=== PATIENT | female | born 1970 | race Caucasian/White ===

== ENCOUNTER 2018-01-01 16:58 | Emergency (ER) | payer BC, OTHER ==
[~2018-01-01] VITALS: Ht 172.7 cm; Wt 99.8 kg
--- NOTE | 2018-01-01 17:53 | RAD ---
Examination: CT of the abdomen pelvis without contrast HISTORY: History of left-sided flank pain COMPARISON:03/10/2015 TECHNIQUE: Axial CT images of the abdomen pelvis were performed without contrast. Coronal and sagittal reformats are performed Exposure: One or more of the following individualized dose reduction techniques were utilized for this examination: 1. Automated exposure control 2. Adjustment of the mA and/or kV according to patient size 3. Use of iterative reconstruction technique Findings: The visualized bibasilar lungs are clear. No evidence of free air identified in the abdomen. The evaluation of the solid organs is limited due to lack of IV contrast. The evaluation of the bowel is limited due to lack of oral contrast. The visualized noncontrasted liver, spleen, adrenals grossly appears unremarkable. Surgical changes identified in the stomach Cholecystectomy clips identified. There is minimal fat stranding identified about the pancreas. The small bowel is nondilated. The appendix is normal. Feces and gas noted in the colon. Urinary bladder is mildly distended. Punctate 2 mm intrarenal collecting system calculus identified in the left kidney. No evidence of hydronephrosis. There is a tiny 1 mm calcification identified in the left pelvis best seen on series 2 image #132 could be distal ureteral calculus or pelvic phleboliths. The course of the left ureter in the pelvis cannot be clearly identified however there is no evidence of hydronephrosis. The caliber of the aorta grossly appears unremarkable. No evidence of lytic bony destructive lesion. IMPRESSION: 1. Mild fat stranding identified about the pancreas probably pancreatitis. Correlate with lab values. 2. Punctate 2 mm intrarenal collecting system calculus in the left kidney. No evidence of hydronephrosis.There is a tiny 1 mm calcification identified in the left pelvis best seen on series 2 image #132 could be distal ureteral calculus or pelvic phlebolith. The course of the left ureter in the pelvis cannot be clearly identified however there is no evidence of hydronephrosis. Electronically signed by: Rodrigo Davalos MD (01/01/2018 5:50 PM) [facility]
--- NOTE | 2018-01-01 18:14 | ED.ADGEN ---
Past History Past Medical History: Kidney Stones, Other Past Surgical History: Other Alcohol Use: None Drug Use: None Adult General Chief Complaint Chief Complaint " .. I hurting here in my Lt flank...".." Dr. Hatch office sent me over here...".." I know I got a UTI..." HPI HPI Patient is a 47 year old female who presents with above hx and Lt. flank pain and hx dysuria. Pt. localizes pain in left flank. Patient does have associated nausea. There is radiation of pain from left flank down to pelvic area. No history of pelvic discharge. No history immunosuppression. No history of travel. No history of ill contacts. Patient does have prescription for Bactrim already. Patient seen earlier [facility]. No history of bad food. Normal stools. Review of Systems Review of Systems Constitutional: Denies fever or chills [] Eyes: Denies change in visual acuity, redness, or eye pain [] HENT: Denies nasal congestion or sore throat [] Respiratory: Denies cough or shortness of breath [] Cardiovascular: No additional information not addressed in HPI [] GI: Denies abdominal pain, nausea, vomiting, bloody stools or diarrhea [] : Denies dysuria or hematuria [] Musculoskeletal: Denies back pain or joint pain [] Integument: Denies rash or skin lesions [] Neurologic: Denies headache, focal weakness or sensory changes [] Endocrine: Denies polyuria or polydipsia [] All other systems were reviewed and found to be within normal limits, except as documented in this note. Family History Family History Noncontributory Current Medications Current Medications Current Medications Medications (Trade) Dose Ordered Sig/Orestes Start Time Stop Time Status Last Admin Dose Admin Ceftriaxone Sodium 1 gm/ Sodium Chloride 50 ml @ 100 mls/hr 1X ONCE 01/01/18 19:30 01/01/18 19:35 DC Ceftriaxone Sodium (Rocephin) 1 gm Q24H 01/01/18 19:45 01/01/18 20:24 DC 01/01/18 19:54 1 GM Famotidine (Pepcid Vial) 20 mg 1X ONCE 01/01/18 18:30 01/01/18 18:32 DC 01/01/18 18:56 20 MG Fentanyl Citrate (Fentanyl 2ml Vial) 75 mcg 1X ONCE 01/01/18 18:30 2/16/18 18:32 DC 01/01/18 18:50 75 MCG Ketorolac Tromethamine (Toradol) 30 mg 1X ONCE 01/01/18 19:30 01/01/18 19:34 DC 01/01/18 19:50 30 MG Ondansetron HCl (Zofran) 8 mg 1X ONCE 01/01/18 19:30 01/01/18 19:34 DC 01/01/18 19:48 8 MG Sodium Chloride 1,000 ml @ 1,000 mls/hr Q1H 01/01/18 18:30 01/01/18 19:29 DC 01/01/18 18:51 1,000 MLS/HR Tamsulosin HCl (Flomax) 0.4 mg 1X ONCE 01/01/18 19:30 01/01/18 19:34 DC 01/01/18 19:46 0.4 MG Allergies Allergies Allergies Coded Allergies Type Severity Reaction Last Updated Verified Latex, Natural Rubber Allergy Intermediate Nausea 03/10/15 Yes morphine Allergy Intermediate Nausea and Vomiting 03/10/15 Yes Physical Exam Physical Exam Constitutional: in acute distress, non-toxic appearance. [] HENT: Normocephalic, atraumatic, bilateral external ears normal, oropharynx moist, no oral exudates, nose normal. [] Eyes: PERRLA, EOMI, conjunctiva normal, no discharge. [] Neck: Normal range of motion, no tenderness, supple, no stridor. [] Cardiovascular:Heart rate regular rhythm, no murmur [] Lungs & Thorax: Bilateral breath sounds equal at apexes on auscultation [] Abdomen: Bowel sounds decreased, soft, left flank tenderness, no masses, no pulsatile masses. Obese Skin: Warm, dry, no erythema, no rash. [] Back: No tenderness, no CVA tenderness. [] Extremities: No tenderness, no cyanosis, no clubbing, ROM intact, no edema. No psoas or obturator sign Neurologic: Alert and oriented X 3, normal motor function, normal sensory function, no focal deficits noted. [] Psychologic: Affect anxious, judgement normal, mood normal. [] Current Patient Data Vital Signs Vital Signs Date Time Temp Pulse Resp B/P (MAP) Pulse Ox O2 Delivery O2 Flow Rate FiO2 01/01/18 20:15 56 16 101/59 (73) 100 Room Air 01/01/18 17:10 98.3 Lab Results Laboratory Tests Test 01/01/18 18:20 01/01/18 18:30 Urine Collection Type Unknown Urine Color Yellow Urine Clarity Clear Urine pH 5.5 Urine Specific Bayard 1.020 Urine Protein Neg (NEG-TRACE) Urine Glucose (UA) Neg mg/dL (NEG) Urine Ketones (Stick) Neg mg/dL (NEG) Urine Blood Neg (NEG) Urine Nitrite Neg (NEG) Urine Bilirubin Neg (NEG) Urine Urobilinogen Dipstick 1 mg/dL (0.2 mg/dL) Urine Leukocyte Esterase Trace (NEG) Urine RBC 3-5 /HPF (0-2) Urine WBC 5-10 /HPF (0-4) Urine Squamous Epithelial Cells Few /LPF Urine Bacteria 0 /HPF (0-FEW) Urine Mucus Slight /LPF Urine Opiates Screen Neg (NEG) Urine Methadone Screen Neg (NEG) Urine Barbiturates Neg (NEG) Urine Phencyclidine Screen Neg (NEG) Urine Amphetamine/Methamphetamine Neg (NEG) Urine Benzodiazepines Screen Neg (NEG) Urine Cocaine Screen Neg (NEG) Urine Cannabinoids Screen Neg (NEG) Urine Ethyl Alcohol Neg (NEG) White Blood Count 5.8 x10^3/uL (4.0-11.0) Red Blood Count 4.56 x10^6/uL (3.50-5.40) Hemoglobin 13.3 g/dL (12.0-15.5) Hematocrit 39.3 % (36.0-47.0) Mean Corpuscular Volume 86 fL (79-100) Mean Corpuscular Hemoglobin 29 pg (25-35) Mean Corpuscular Hemoglobin Concent 34 g/dL (31-37) Red Cell Distribution Width 13.7 % (11.5-14.5) Platelet Count 252 x10^3/uL (140-400) Neutrophils (%) (Auto) 56 % (31-73) Lymphocytes (%) (Auto) 32 % (24-48) Monocytes (%) (Auto) 9 % (0-9) Eosinophils (%) (Auto) 2 % (0-3) Basophils (%) (Auto) 1 % (0-3) Neutrophils # (Auto) 3.3 x10^3uL (1.8-7.7) Lymphocytes # (Auto) 1.8 x10^3/uL (1.0-4.8) Monocytes # (Auto) 0.5 x10^3/uL (0.0-1.1) Eosinophils # (Auto) 0.1 x10^3/uL (0.0-0.7) Basophils # (Auto) 0.1 x10^3/uL (0.0-0.2) Prothrombin Time 10.4 SEC (9.4-11.4) Prothrombin Time INR 1.0 (0.9-1.1) PTT 25 SEC (23-33) Sodium Level 138 mmol/L (136-145) Potassium Level 4.1 mmol/L (3.5-5.1) Chloride Level 103 mmol/L (98-107) Carbon Dioxide Level 30 mmol/L (21-32) Anion Gap 5 (6-14) L Blood Urea Nitrogen 14 mg/dL (7-20) Creatinine 0.7 mg/dL (0.6-1.0) Estimated GFR (Cockcroft-Gault) 89.7 Glucose Level 91 mg/dL (70-99) Calcium Level 9.2 mg/dL (8.5-10.1) Total Bilirubin 0.4 mg/dL (0.2-1.0) Direct Bilirubin 0.1 mg/dL (0.0-0.2) Aspartate Amino Transferase (AST) 30 U/L (15-37) Alanine Aminotransferase (ALT) 33 U/L (14-59) Alkaline Phosphatase 117 U/L (46-116) H Troponin I Quantitative < 0.017 ng/mL (0-0.055) Total Protein 8.5 g/dL (6.4-8.2) H Albumin 4.2 g/dL (3.4-5.0) Amylase Level 58 U/L (25-115) Lipase 106 U/L (73-393) EKG EKG [] Radiology/Procedures Radiology/Procedures CT shows[] distal 1 mm stone but no hydronephrosis. No other surgical pathology. There is questionable findings of pancreatitis. See formal report when available Course & Med Decision Making Course & Med Decision Making Pertinent Labs and Imaging studies reviewed. (See chart for details). Patient to push fluids and vitamin C drinks. Patient take Bactrim DS twice a day. Patient to take Flomax daily at night. Patient take Zofran for nausea and vomiting up to 4 times a day. Patient may take Vicoprofen up 4 times a day for pain. Must follow-up. [] Final Impression Final Impression 1. Renal Colic 2. Renal Stone 3. UTI[] Problems: Dragon Disclaimer Dragon Disclaimer This electronic medical record was generated, in whole or in part, using a voice recognition dictation system. DANG CHANG MD Jan 01, 2018 18:14
[2018-01-01] MEDS ORDERED: IV NORMAL SALINE 1,000ML 1,000 ML IV SCH (18:30)
[2018-01-01] MEDS ORDERED: FAMOTIDINE 20 MG/2 ML VIAL IVP ONE (18:30)
[2018-01-01] MEDS ORDERED: ONDANSETRON PF 4 MG/2 ML VIAL. IV ONE ×2 (18:30→19:30)
[2018-01-01 18:49] LABS: BASO # 0.1 x10^3/uL (0.0-0.2); BASO % 1 % (0-3); EOS # 0.1 x10^3/uL (0.0-0.7); EOS % 2 % (0-3); HEMATOCRIT 39.3 % (36.0-47.0); HEMOGLOBIN 13.3 g/dL (12.0-15.5); LYMPH # 1.8 x10^3/uL (1.0-4.8); LYMPH % 32 % (24-48); MEAN CORPUSCULAR HEMOGLOBIN 29 pg (25-35); MEAN CORPUSCULAR HGB CONC 34 g/dL (31-37); MEAN CORPUSCULAR VOLUME 86 fL (79-100); MONO # 0.5 x10^3/uL (0.0-1.1); MONO % 9 % (0-9); NEUT # 3.3 x10^3uL (1.8-7.7); NEUT % 56 % (31-73); PLATELET COUNT 252 x10^3/uL (140-400); RED BLOOD COUNT 4.56 x10^6/uL (3.50-5.40); RED CELL DISTRIBUTION WIDTH 13.7 % (11.5-14.5); WHITE BLOOD COUNT 5.8 x10^3/uL (4.0-11.0)
[2018-01-01 18:58] LABS: ALBUMIN 4.2 g/dL (3.4-5.0); CALCIUM 9.2 mg/dL (8.5-10.1); CREATININE 0.7 mg/dL (0.6-1.0); DIRECT BILIRUBIN 0.1 mg/dL (0.0-0.2); GFR 89.7; POTASSIUM 4.1 mmol/L (3.5-5.1); TOTAL BILIRUBIN 0.4 mg/dL (0.2-1.0); TOTAL PROTEIN 8.5 g/dL (6.4-8.2)
[2018-01-01 19:00] LABS: BILIRUBIN,URINE NEG (NEG); CLARITY,URINE CLEAR; COLOR,URINE YELLOW; GLUCOSE,URINE NEG (NEG); UROBILINOGEN,URINE 1 mg/dL (0.2 mg/dL)
[2018-01-01 19:02] LABS: NITRITE,URINE NEG (NEG)
[2018-01-01 19:03] LABS: BACTERIA,URINE 0 /HPF (0-FEW); SQUAMOUS EPITHELIAL CELL,UR FEW /LPF
[2018-01-01 19:17] LABS: BARBITURATES NEG (NEG); BENZODIAZEPINES NEG (NEG); CANNABINOIDS NEG (NEG); COCAINE NEG (NEG); METHADONE NEG (NEG); OPIATES NEG (NEG); PHENCYCLIDINE NEG (NEG)
[2018-01-01 19:18] LABS: AMPHETAMINE/METHAMPHETAMINE NEG (NEG)
[2018-01-01] MEDS ORDERED: KETOROLAC 30 MG/ML VIAL. IV ONE (19:30)
[2018-01-01] MEDS ORDERED: TAMSULOSIN 0.4 MG CAP.ER.24H. PO ONE (19:30)
[2018-01-01] MEDS ORDERED: HYDR-79 PO (19:38)
[2018-01-01] MEDS ORDERED: ONDA8TAB12 PO (19:38)
[2018-01-01] MEDS ORDERED: TAMS0.4C97 PO (19:38)
[2018-01-01] MEDS ORDERED: cefTRIAXone IV Push 1 GM VIAL. IVP SCH (19:45)
[2018-01-01 20:15] VITALS: BP 101/59
--- NOTE | 2018-01-02 08:51 | RAD ---
EXAM: Two view abdomen with one view chest HISTORY: Left flank pain, renal stones. COMPARISON: None. FINDINGS: A frontal view of the chest and supine/upright views of the abdomen are obtained. There are no confluent infiltrates. There is no pneumothorax or pleural effusion. The heart is not enlarged. There are postoperative changes within the upper abdomen. Tiny calculi seen on CT are not appreciable by radiographs. There is no pneumoperitoneum. There are no distended small bowel loops or significant air-fluid levels. There is gas distally. IMPRESSION: 1. No confluent infiltrates. 2. The tiny calculi on CT are not appreciable by radiographs. 3. No evidence of obstruction.
== END 2018-01-01 20:18 | disposition home or self-care (01) ==
LOC: ER 16:58
DX: N20.0 Calculus of kidney (principal); N39.0 Urinary tract infection, site not specified; Z87.442 Personal history of urinary calculi; Z88.5 Allergy status to narcotic agent; Z91.040 Latex allergy status
CPT/HCPCS: 36415; 74022; 74176; 80048; 80076; 80307; 81001; 81025; 82150; 83690; 84484; 85025; 85610; 85730; 87086; 96361; 96372; 96374; 96375; 96376; 99285; J0696; J1885; J2405; J3010; S0028; G0479; J7030